=== PATIENT | female | born 1995 ===

== ENCOUNTER 2022-04-12 20:17 | Emergency (ER) | payer BC, OTHER ==
[2022-04-12] MEDS ORDERED: Ketorolac 30 MG/ML SDV IM ONE (20:36)
[2022-04-12] MEDS ORDERED: Ondansetron 4 MG/2 ML SDV IM ONE (20:36)
== END 2022-04-12 21:47 | disposition home or self-care (01) ==
LOC: FB.ED 20:17
DX: G43.909 Migraine, unspecified, not intractable, without status migrainosus (principal)
CPT/HCPCS: 96372; 99283; J1885; J2405